=== PATIENT | male | born 1965 | race Caucasian/White ===

== ENCOUNTER 2016-12-28 08:53 | Day surgery (SDC) | payer OTHER ==
[~2016-12-28 08:53] MED LIST: PROPOFOL 500 MG/50 ML EMU IV ONE
[2016-12-28 11:04] VITALS: BP 122/76; PULSE 74; RESP 20; TEMP 97.3; O2SAT 98
== END 2016-12-28 11:25 | disposition home or self-care (01) | DRG 951 ==
LOC: SURG 08:53
PROVIDERS: ATTEND Surgery
DX: Z12.11 Encounter for screening for malignant neoplasm of colon (principal); K57.30 Diverticulosis of large intestine without perforation or abscess without bleeding
CPT/HCPCS: J2704